=== PATIENT | female | born 1970 | race Caucasian/White ===

== ENCOUNTER 2019-10-04 04:34 | Emergency (ER) | payer SELFPAY ==
[~2019-10-04] VITALS: Ht 170.2 cm; Wt 79.5 kg
[2019-10-04 08:41] VITALS: BP 111/56
[2019-10-04] MEDS ORDERED: VOLTAREN75 MG PO (08:43)
== END 2019-10-04 08:56 | disposition home or self-care (01) | DRG 103 ==
LOC: ED 04:34
DX: R51 Headache (principal); M54.9 Dorsalgia, unspecified; T14.8XXA Other injury of unspecified body region, initial encounter; W01.0XXA Fall on same level from slipping, tripping and stumbling without subsequent striking against object, initial encounter